=== PATIENT | male | born 2005 | race Asian ===

== ENCOUNTER 2023-12-29 20:32 | Emergency (ER) | payer BC ==
[2023-12-29] MEDS ORDERED: Lidocaine 1% w/Epinephrine 1:200K 30 ML VIAL ONE (21:22)
[2023-12-29] MEDS ORDERED: Bacitracin 1 PK ONE (21:22)
== END 2023-12-29 22:17 | disposition home or self-care (01) ==
LOC: CSHERS 20:32
DX: S51.012A Laceration without foreign body of left elbow, initial encounter (principal); Z55.6 Problems related to health literacy; W26.8XXA Contact with other sharp object(s), not elsewhere classified, initial encounter
CPT/HCPCS: 12002; 99282